=== PATIENT | male | born 1960 | race Caucasian/White ===

== ENCOUNTER 2018-04-17 17:12 | Emergency (ER) | payer BC, OTHER ==
[2018-04-17 17:32] VITALS: BP 171/79; PULSE 86; TEMP 98.6; BMI 34.9
--- NOTE | 2018-04-17 17:32 | PDOC ---
Rapid Medical Evaluation Chief Complaint: Pain Time Seen by Provider: 04/17/18 17:29 Medical Evaluation: 04/17/18 17:30 I have performed a brief in person evaluation of this patient. The patient presents with the CC of: abd pain HPI: Pt is a 57 Yo male who complains of right sided abd pain. Pt denies fever , denies hx of abd surgeries. PE: Skin: Clear Lungs: Clear Heart: RRR Abd: non tender MS: Moves all extremities without difficulty Neuro: Alert and oriented Psych: Appropriate affect I have ordered the following: abd protocol Pt will proceed to the main ED for further evaluation. Discharge Disposition - Diagnosis Abdominal pain Qualifiers: Abdominal location: right lower quadrant Qualified Code(s): R10.31 - Right lower quadrant pain - Referrals - Patient Instructions - Post Discharge Activity
[2018-04-17 18:32] LABS: ALBUMIN 4.5 g/dl (3.4-5.0); ALK PHOS 125 U/L (45-117); ANION GAP 9 MMOL/L (8-16); BILIRUBIN,TOTAL 0.7 mg/dL (0.2-1); BLOOD UREA NITROGEN 21 mg/dL (7-18); CALCIUM 9.1 mg/dL (8.5-10.1); CHLORIDE 96 mmol/L (98-107); CO2 29 mmol/L (21-32); CREATININE 1.4 mg/dL (0.55-1.3); GLUCOSE,RANDOM 242 mg/dL (74-106); LIPASE 121 U/L (73-393); POTASSIUM 4.1 mmol/L (3.5-5.1); SGOT/AST 23 U/L (15-37); SGPT/ALT 39 U/L (13-61); SODIUM 134 mmol/L (136-145); TOT PROT 7.7 g/dl (6.4-8.2)
[2018-04-17 18:42] LABS: BASO % 0.3 % (0-2.0); EOS % 0.7 % (0-4.5); HEMATOCRIT 44.4 % (35.4-49); HEMOGLOBIN 15.7 GM/dL (11.7-16.9); LYMPH % 8.9 % (8-40); MCHC 35.4 g/dl (32.0-35.9); MEAN CELL VOLUME 84.8 fl (80-96); MEAN PLT VOLUME 8.9 fl (7.5-11.1); MONO % 7.5 % (3.8-10.2); NEUT % 82.6 % (42.8-82.8); PLATELET COUNT 184 K/MM3 (134-434); RBC 5.24 M/mm3 (4.00-5.60); RDW 13.9 % (11.9-15.9); WHITE BLOOD COUNT 12.1 K/mm3 (4.0-10.0)
[2018-04-17 19:35] LABS: URINE APPEARANCE CLEAR; URINE BILIRUBIN NEGATIVE (<2.0 mg/dL); URINE COLOR LTYELLOW; URINE GLUCOSE (UA) 2+ (NEGATIVE); URINE KETONE NEGATIVE (NEGATIVE); URINE LEUK ESTERASE 1+ (NEGATIVE); URINE NITRITE NEGATIVE (NEGATIVE); URINE PROTEIN NEGATIVE (NEGATIVE); URINE UROBILINOGEN NEGATIVE mg/dL (0.2-1.0)
--- NOTE | 2018-04-17 19:36 | PDOC ---
History of Present Illness - General Chief Complaint: Pain Stated Complaint: RT ABDOMINAL PAIN Time Seen by Provider: 04/17/18 17:29 - History of Present Illness Initial Comments: Moe Argueta is a 57yo man with a PMH of DM, HTN, tachycardia, multiple kidney stones who presents with waxing/waning RLQ abdominal pain. He reports that he felt well when he got up this morning, but he started noticing RLQ pain about an hour later. He initially thought it was a gas pain and took some GasX without improvement. The pain worsened throughout the day, and he went to see his PMD in the afternoon. At worst, the pain was 8/10 and is currently 2/10. It is non-radiating. He has no associated nausea, vomiting, diarrhea, constipation , urinary symptoms, or fever though he does note that he has been urinating less frequently than normal today. He also notes that his diabetes has not been well controlled recently, and his sugars have been very high. Past History - Past Medical History Allergies/Adverse Reactions: Allergies Allergy/AdvReac Type Severity Reaction Status Date / Time No Known Allergies Allergy Verified 04/17/18 17:32 Home Medications: Ambulatory Orders Cephalexin Monohydrate [Keflex -] 500 mg PO BID #20 capsule 04/17/18 Tamsulosin HCl [Flomax] 0.4 mg PO DAILY #14 capsule 04/17/18 COPD: No Diabetes: Yes HTN: Yes - Surgical History Lung Surgery: No - Immunization History Immunization Up to Date: No - Suicide/Smoking/Psychosocial Hx Smoking History: Never smoked Have you smoked in the past 12 months: No Information on smoking cessation initiated: No Hx Alcohol Use: No Drug/Substance Use Hx: No Review of Systems - Review of Systems Comments:: General: No fevers, no chills, no weight or appetite change, no malaise HEENT: No changes in vision, no changes in hearing, no congestion, no sore throat CV: No chest pain, no palpitations, no LE edema. h/o tachycardia Pulm: No SOB, no cough, no wheezing GI: No nausea or vomiting, no change in bowel habits, no melena. +RLQ pain : No frequency, no urgency, no dysuria. h/o stones Musc: No back pain, no joint swelling, no recent injury Skin: No rash, no lesions, no erythema Endo: No excessive thirst, no heat/cold intolerance Heme: No unusual bruising or bleeding, no swollen glands Neuro: No syncope, no numbness/tingling, no focal weakness Vasc: No claudication Psych: No recent change in mood, no SI or HI *Physical Exam - Vital Signs Last Vital Signs Temp Pulse Resp BP Pulse Ox 98.6 F 86 18 171/79 H 99 04/17/18 17:30 04/17/18 17:30 04/17/18 17:30 04/17/18 17:30 04/17/18 17:30 - Physical Exam Comments: General: Comfortable, no acute distress HEENT: PERRL, EOMI, MMM, voice normal, normal neck ROM, no LAD Cards: RRR, no murmur appreciated Pulm: Comfortable on room air, clear to auscultation bilaterally Abd: Soft, nondistended. Mild RLQ tenderness with deep palpation : No CVA tenderness Ext: Atraumatic. No LE edema. ROM intact. Strength 5/5 and equal bilaterally Vasc: Extremities WWP. Skin: Normal color, no rashes or lesions Neuro: A&Ox3, CN grossly intact, normal speech, motor/sensory grossly intact and symmetric Psych: Mood appropriate to situation Moderate Sedation - Procedure Monitoring Vital Signs: Procedure Monitoring Vital Signs Temperature 98.6 F 04/17/18 17:30 Pulse Rate 86 04/17/18 17:30 Respiratory Rate 18 04/17/18 17:30 Blood Pressure 171/79 H 04/17/18 17:30 O2 Sat by Pulse Oximetry (%) 99 04/17/18 17:30 ED Treatment Course - LABORATORY CBC & Chemistry Diagram: 04/17/18 17:40 04/17/18 17:40 - ADDITIONAL ORDERS Additional order review: Laboratory Results 04/17/18 17:40 Sodium 134 L Potassium 4.1 Chloride 96 L Carbon Dioxide 29 Anion Gap 9 BUN 21 H Creatinine 1.4 H Creat Clearance w eGFR 52.62 Random Glucose 242 H Calcium 9.1 Total Bilirubin 0.7 AST 23 ALT 39 Alkaline Phosphatase 125 H Total Protein 7.7 Albumin 4.5 Lipase 121 04/17/18 17:40 RBC 5.24 MCV 84.8 MCHC 35.4 RDW 13.9 MPV 8.9 Neutrophils % 82.6 Lymphocytes % 8.9 Monocytes % 7.5 Eosinophils % 0.7 Basophils % 0.3 Medical Decision Making - Medical Decision Making 04/17/18 19:28 Moe Argueta is a 57yo man with a PMH of DM, HTN, tachycardia, multiple kidney stones who presents with waxing/waning RLQ abdominal pain that started 1hr after waking this morning. He reports that the pain feels similar to his kidney stones but is in a different location than normal. - Ddx includes kidney stone, UTI, less likely appendicitis given lack of fever and improvement in pain. No diarrhea or constipation suggesting colitis, enteritis, obstruction. - CBC, CMP, lipase, UA ordered in RME - Labs reviewed. Notable for WBC 12, Cr 1.4, BUN 21, glucose 242. No previous labs for comparison, pt not aware of elevated BUN, Cr, but he does report recent hyperglycemia - UA sent, pending 04/17/18 19:46 - UA with 3+ blood, 11 WBC, 63 RBC, +1 leuk esterase - Suggests UTI, though could also indicate a stone. 04/17/18 21:09 - Following discussion with Dr Jones, CT abd/pelvis without contrast ordered to evaluate for hydronephrosis and location of stone - Patient walked to CT 04/17/18 22:24 - CT read back. Shows 6mm stone at R UVJ, likely obstructing, R hydronephrosis with perinephric fat stranding - Call to urology placed - Ceftriaxone IV ordered while in ED, IV tylenol for pain after moving for CT - Spoke to patient regarding admission. He states that he may be unable to stay overnight due to no childcare. He will try to arrange childcare for his daughter but may have to AMA. He understands that he will need to sign AMA paperwork in this case. 04/17/18 22:44 - Spoke to Dr Wilfredo Spring. Will see patient for follow up. Agrees with plan to continue abx, flomax. Should get urine strainer and bring stone to follow up if possible - Mr Argueta reports that he will have to leave AMA as he cannot get anyone to care for his daughter. Discussed home care, follow up, and return precautions. Mr Anne states that he will call for follow up first thing in the morning. Discussed with Dr Jones. Donita Alvarado PGY1 *DC/Admit/Observation/Transfer Diagnosis at time of Disposition: Kidney stone on right side, Hydroureteronephrosis - Discharge Dispostion Disposition: AGAINST MEDICAL ADVICE Condition at time of disposition: Stable - Prescriptions Prescriptions: Cephalexin Monohydrate [Keflex -] 500 mg PO BID #20 capsule Tamsulosin HCl [Flomax] 0.4 mg PO DAILY #14 capsule - Referrals Referrals: Kwame Spring MD [Staff Physician] - - Patient Instructions Printed Discharge Instructions: DI for Kidney Stones Additional Instructions: Discharge Instructions: You were seen in the emergency department with abdominal pain. You were found to have a kidney stone that is partially blocking your ureter and causing some hydronephrosis (backup into the kidney with inflammation and swelling). You may also have a urinary tract infection. You were given an antibiotic for suspected infection while in the ER. Home Care: - You have been prescribed an antibiotic for urinary tract infection. This should be taken twice daily until the entire prescription is completed - You have also been prescribed tamsulosin (Flomax) to help flush out the kidney stone - Take acetaminophen (Tylenol) as 650-1000mg every 6-8 hours as needed for pain - Use the urine strainer you have been provided to try to catch your kidney stone at home. If you pass the stone, bring it to your urology appointment. Follow Up: - You have been referred to a urologist, Dr Spring. Please call to make an appointment for follow up within the next 2-3 days. - Seek immediate medical care if your symptoms worsen, you develop fevers to 101F, or you stop urinating completely. - Post Discharge Activity
[2018-04-17 19:40] LABS: EPI CELLS RARE /HPF (FEW); URINE MUCUS RARE
--- NOTE | 2018-04-17 20:17 | PDOC ---
Attending Attestation - HPI HPI: 04/17/18 21:10 The patient is a 57 year old male with a PMH of diabetes presenting to the ER with urinary hesitancy and right flank pain. Patient states he had kidney stones in the past. Patient has not followed up with urology. Patient denies any associated testicular pain. The patient denies chest pain, shortness of breath, headache and dizziness. Denies fever, chills, nausea, vomit, diarrhea and constipation. Denies dysuria, frequency, urgency and hematuria. Allergies: NKA Past surgical history: None reported. Social history: No reported alcohol, drug or cigarette use. - Physicial Exam PE: 04/17/18 21:12 ADULT PHYSICAL EXAM Constitutional: Awake, alert, oriented. No acute distress. Neck: Supple. Full ROM. No lymphadenopathy. Cardiovascular: Regular rate. Regular rhythm. S1, S2 regular. Distal pulses are 2+ and symmetric. Pulmonary/Chest: No evidence of respiratory distress. Clear to auscultation bilaterally No wheezing, rales or rhonchi. Abdominal: Soft and non-distended. There is no tenderness. No rebound, guarding or rigidity. No organomegaly. No palpable masses. Good bowel sounds. Back: (+) Right flank tenderness. Musculoskeletal: No edema. No cyanosis. No clubbing. Full range of motion in all extremities. Nocalf tenderness. Radial/pedal pulses are intact and 2+ bilaterally Skin: Skin is warm and dry. No petechiae. No purpura. Neurological: Alert and oriented to person, place, and time. Cranial nerves II- XII are grossly intact. Normal speech. Strength is grossly symmetric. No sensory deficits. Psychiatric: Good eye contact. Normal interaction, affect and behavior. <Morena Martinez - Last Filed: 04/17/18 21:10> - Resident Resident Name: Donita Alvarado - ED Attending Attestation I have performed the following: I have examined & evaluated the patient, The case was reviewed & discussed with the resident, I agree w/resident's findings & plan, Exceptions are as noted - Medical Decision Making 04/17/18 20:17 I, Dr. Zoe Jones, DO, attest that this document has been prepared under my direction and personally reviewed by me in its entirety. I further attest, that it accurately reflects all work, treatment, procedures and medical decision -making performed by me. 04/17/18 21:03 a/p: 57yo diabetic with urinary hesitancy and R flank pain -hx of renal stones in the past, has never seen urology -pt states urinary hesitancy today and R flank pain -no testicular pain -labs sent from [facility] show mildly elevated cr and blood in urine -will send for CT to eval for obstructing stone -pt ambulates with a steady gait and is in NAD 04/17/18 22:42 pt with 6mm obstructing stone concern for dmitri uti and diabetic case discussed with Dr. Spring- recommends abx and flomax pt states he does not want to stay states he wants to sign out AMA because he has a sick daughter at home he needs to help care for. resident discussed risks of staying vs ama Note: The patient insists on leaving the emergency dept and is signing out against medical advice. The patient understands the risks and complications that may result from the refusal of medical care and admission which includes and permanent disability. The patient has the mental capacity of understanding the risks of refusing care and is capable of making an informed decision. The patient was instructed to return to the emergency department should he change his mind regarding medical care or should his condition worsen. The patient signed the Against Medical Advice form. <Zoe Jones - Last Filed: 04/17/18 22:45>
[2018-04-17] MEDS ORDERED: SODIUM CHLORIDE 0.9% 500 ML INFUS.BAG IV ONE (20:23)
[2018-04-17] MEDS ORDERED: ACETAMINOPHEN 1000 MG/100 ML VIAL (NON FORMULARY) IVPB ONE (21:04)
[2018-04-17] MEDS ORDERED: ACETAMINOPHEN INJECTION 100 ML IVPB ONE (21:47)
[2018-04-17] MEDS ORDERED: CEFTRIAXONE 1 GM in DEXTROSE 5%-WATER - 100 ML IVPB ONE (22:16)
[2018-04-17] MEDS ORDERED: TAMSULOSIN HCL 0.4 MG CAP PO ONE (22:22)
[2018-04-17] MEDS ORDERED: TAMSULOSIN HCL 0.4 MG CAP ONE (22:51)
[2018-04-17] MEDS ORDERED: CEFTRIAXONE 1 GM/50 ML BAG ONE (22:51)
== END 2018-04-17 23:43 | disposition left against medical advice (07) ==
LOC: JER 17:12
PROC: 3E03329 Introduction of Other Anti-infective into Peripheral Vein, Percutaneous Approach (ICD-10-PCS; principal; 2018-04-17)
PROC: 3E033NZ Introduction of Analgesics, Hypnotics, Sedatives into Peripheral Vein, Percutaneous Approach (ICD-10-PCS; 2018-04-17)
PROC: 3E0337Z Introduction of Electrolytic and Water Balance Substance into Peripheral Vein, Percutaneous Approach (ICD-10-PCS; 2018-04-17)
DX: N13.2 Hydronephrosis with renal and ureteral calculous obstruction (principal); I10 Essential (primary) hypertension; E11.9 Type 2 diabetes mellitus without complications
CPT/HCPCS: 36415; 74176-TC; 80053; 81003; 81015; 83690; 85025; 87086; 87186; 99283-25; J0131

== ENCOUNTER 2018-06-01 11:58 | Inpatient (IN) | payer BC, OTHER ==
[2018-06-01] MEDS ORDERED: SODIUM CHLORIDE 1,000 ML IV STA (12:09)
[2018-06-01] MEDS ORDERED: KETOROLAC TROMETHAMINE 30 MG/1 ML VIAL IVPUSH ONE (12:09)
--- NOTE | 2018-06-01 12:12 | PDOC ---
History of Present Illness - General Chief Complaint: Pain, Acute Stated Complaint: ABD PAIN Time Seen by Provider: 06/01/18 12:08 History Source: Patient - History of Present Illness Timing/Duration: reports: constant Quality: reports: severe Abdominal Pain Onset Location: reports: flank Past History - Past Medical History Allergies/Adverse Reactions: Allergies Allergy/AdvReac Type Severity Reaction Status Date / Time No Known Allergies Allergy Verified 06/01/18 12:04 Home Medications: Ambulatory Orders Carvedilol 0 mg PO DAILY 06/01/18 Losartan Potassium 0 mg PO DAILY 06/01/18 Metformin HCl [Glucophage] 500 mg PO BID 06/01/18 Simvastatin 0 mg PO DAILY 06/01/18 COPD: No Diabetes: Yes HTN: Yes - Surgical History Lung Surgery: No - Immunization History Immunization Up to Date: No - Suicide/Smoking/Psychosocial Hx Smoking History: Never smoked Have you smoked in the past 12 months: No Hx Alcohol Use: No Drug/Substance Use Hx: No Review of Systems - Review of Systems Constitutional: No: Chills, Fever ABD/GI: No: Blood Streaked Bowels, Diarrhea, Nausea, Rectal Bleeding, Vomiting, Abdominal cramping : Yes: Flank Pain. No: Burning, Dysuria, Discharge, Frequency, Hematuria *Physical Exam - Vital Signs Last Vital Signs Temp Pulse Resp BP Pulse Ox 98.4 F 114 H 20 178/104 H 99 06/01/18 12:04 06/01/18 12:04 06/01/18 12:04 06/01/18 12:04 06/01/18 12:04 - Physical Exam General Appearance: Yes: Appropriately Dressed, Mild Distress HEENT: positive: Normal Voice Neck: positive: Supple Respiratory/Chest: positive: Lungs Clear, Normal Breath Sounds. negative: Respiratory Distress Cardiovascular: positive: Regular Rate, S1, S2 Gastrointestinal/Abdominal: positive: Normal Bowel Sounds, Soft. negative: Tender, Pulsatile Mass Musculoskeletal: negative: CVA Tenderness Integumentary: positive: Dry, Warm Neurologic: positive: Fully Oriented, Alert, Normal Mood/Affect Moderate Sedation - Procedure Monitoring Vital Signs: Procedure Monitoring Vital Signs Temperature 98.4 F 06/01/18 12:04 Pulse Rate 114 H 06/01/18 12:04 Respiratory Rate 20 06/01/18 12:04 Blood Pressure 178/104 H 06/01/18 12:04 O2 Sat by Pulse Oximetry (%) 99 06/01/18 12:04 ED Treatment Course - LABORATORY CBC & Chemistry Diagram: 06/01/18 12:24 06/01/18 12:24 - RADIOLOGY Radiology Studies Ordered: Category Date Time Status ABDOMEN & PELVIS CT W/O CONTR [CT] Stat CT Scan 06/01/18 12:09 Ordered Medical Decision Making - Medical Decision Making 06/01/18 12:11 58 yo M, HTN, NIDDM, renal stones, s/p lithotripsy > 10 years ago, here w/ severe L flank pain since last night, similar to his renal colic. No n/v/f/c, dysuria or hematuria. Of note, was seen in ED 04/06 for R flank pain. In addition to R UVJ stone, CT done at the time revealed stones in the lower poles of b/l kidneys See exam L flank pain M/l stone as have h/o same, elevated HR and BP noted at triage though very little clinical concern for dissection at time, m/l due to degree of pain -pain control -IVF -labs -CT 06/01/18 14:41 CT w/ 4mm stone to mid L ureter w/ mild hydro and perinephric/ureteral stranding. Wbc 13 w/ cr of 2.2 (Cr 1.4, 04/06). No h/o renal disease. UA w 1+ LE and >60 WBC, ucx sent. Of note, patient had + urine culture 03/2018, which grew back enterococcus and staph and was treated. Reports no dysuria at this time. Possible infected stone. Will give dose of levaquin (sen on prior ucx) and arrange admission. Pt continues to c/o significant L flank pain though has improved. Rpt vital mildly improved. Will continue to manage in ED. 06/01/18 16:11 Pt admitted to hospitalist *DC/Admit/Observation/Transfer Diagnosis at time of Disposition: Renal colic on left side, HEATHER (acute kidney injury), Hyperglycemia - Discharge Dispostion Condition at time of disposition: Fair Decision to Admit order: Yes - Referrals - Patient Instructions - Post Discharge Activity
[2018-06-01] MEDS ORDERED: KETOROLAC TROMETHAMINE 30 MG/1 ML VIAL ONE (12:20)
[2018-06-01] MEDS ORDERED: TAMSULOSIN HCL 0.4 MG CAP PO ONE (12:24)
[2018-06-01 12:38] LABS: BASO % 0.4 % (0-2.0); EOS % 0.4 % (0-4.5); HEMATOCRIT 39.1 % (35.4-49); HEMOGLOBIN 14.3 GM/dL (11.7-16.9); LYMPH % 6.8 % (8-40); MCH 30.1 pg (25.7-33.7); MCHC 36.5 g/dl (32.0-35.9); MEAN CELL VOLUME 82.5 fl (80-96); MEAN PLT VOLUME 8.1 fl (7.5-11.1); MONO % 8.3 % (3.8-10.2); NEUT % 84.1 % (42.8-82.8); PLATELET COUNT 309 K/MM3 (134-434); RBC 4.74 M/mm3 (4.00-5.60); RDW 13.1 % (11.9-15.9); WHITE BLOOD COUNT 13.8 K/mm3 (4.0-10.0)
[2018-06-01] MEDS ORDERED: TAMSULOSIN HCL 0.4 MG CAP ONE (12:44)
[2018-06-01 13:05] LABS: ALBUMIN 3.8 g/dl (3.4-5.0); ALK PHOS 134 U/L (45-117); ANION GAP 7 MMOL/L (8-16); BILIRUBIN,TOTAL 0.7 mg/dL (0.2-1); BLOOD UREA NITROGEN 23 mg/dL (7-18); CALCIUM 9.2 mg/dL (8.5-10.1); CHLORIDE 96 mmol/L (98-107); CO2 31 mmol/L (21-32); CREATININE 2.2 mg/dL (0.55-1.3); POTASSIUM 4.1 mmol/L (3.5-5.1); SGOT/AST 19 U/L (15-37); SGPT/ALT 25 U/L (13-61); SODIUM 134 mmol/L (136-145); TOT PROT 7.3 g/dl (6.4-8.2)
[2018-06-01 13:19] LABS: GLUCOSE,RANDOM 309 mg/dL (74-106)
[2018-06-01] MEDS ORDERED: morphine SULFATE 4 MG/ML VIAL ONE ×2 (14:11→15:15)
[2018-06-01 14:39] LABS: URINE APPEARANCE CLEAR; URINE BILIRUBIN NEGATIVE (<2.0 mg/dL); URINE COLOR STRAW; URINE GLUCOSE (UA) 3+ (NEGATIVE); URINE KETONE NEGATIVE (NEGATIVE); URINE LEUK ESTERASE 1+ (NEGATIVE); URINE NITRITE NEGATIVE (NEGATIVE); URINE PROTEIN NEGATIVE (NEGATIVE); URINE UROBILINOGEN NEGATIVE mg/dL (0.2-1.0)
[2018-06-01] MEDS ORDERED: morphine CARPU-JECT 4 MG/1 ML DISP.SYRIN IVPUSH ONE ×2 (14:43→15:02)
[2018-06-01 14:52] LABS: EPI CELLS RARE /HPF (FEW)
[2018-06-01] MEDS ORDERED: ONDANSETRON 4 MG/2 ML VIAL IVPUSH ONE ×2 (15:15→21:03)
[2018-06-01] MEDS ORDERED: ONDANSETRON 4 MG/2 ML VIAL ONE (15:17)
[2018-06-01] MEDS ORDERED: SODIUM CHLORIDE 1,000 ML IV SCH ×2 (16:45→17:31)
--- NOTE | 2018-06-01 17:00 | HP ---
CHIEF COMPLAINT: L flank pain PCP: Dr. Perkins HISTORY OF PRESENT ILLNESS: 58 y/o M with PMH HTN, HLD, NIDDM, past episodes of nephrolithiasis, who presents to the ED c/o L flank pain x1 day. As per pt, his pain started last night in his L flank. It was 10/10, constant, and a/w radiation to his back and LUQ, LLQ of his abdomen. His pain was so severe that he was unable to sleep last night, so he decided to bring himself to the ED today to get it evaluated. During this time, without notable hematuria or dysuria. Denies fever, chills, SOB, chest pain or pressure, or changes in urinary or bowel function. Of note, patient has had multiple episodes of nephrolithasis prior. Over ten years ago, he underwent lithotripsy, which was complicated by the need for blood transfusion. In 03/2018, he also had a R obstructing stone which passed on its own, as well as two weeks prior. Does not routinely follow with a urologist. ER course was notable for: (1) toradol 20mg IVP x 1 (2) morphine 4mg IVP x2 (3) zofran (4) IV NS (5) flomax (6) levaquin Recent Travel: denies PAST MEDICAL HISTORY: as above PAST SURGICAL HISTORY: lithotripsy > 10 yrs ago Social History: retired. used to work in [employer] Smoking: denies Alcohol: denies Drugs: denies Family History: DM- grandma Allergies No Known Allergies Allergy (Verified 06/01/18 12:04) HOME MEDICATIONS: Home Medications Medication Instructions Recorded Aspirin 81 mg PO DAILY 06/01/18 Carvedilol 12.5 mg PO DAILY 06/01/18 Losartan/Hydrochlorothiazide 1 each DAILY 06/01/18 [Losartan-Hctz 100-12.5 mg Tab] Metformin HCl [Glucophage] 500 mg PO BID 06/01/18 meds have been verified by patient at bedside with card REVIEW OF SYSTEMS CONSTITUTIONAL: Absent: fever, chills, diaphoresis, generalized weakness, malaise, loss of appetite, weight change HEENT: Absent: rhinorrhea, nasal congestion, throat pain, throat swelling, difficulty swallowing, mouth swelling, ear pain, eye pain, visual changes CARDIOVASCULAR: Absent: chest pain, syncope, palpitations, irregular heart rate, lightheadedness , peripheral edema RESPIRATORY: Absent: cough, shortness of breath, dyspnea with exertion, orthopnea, wheezing, stridor, hemoptysis GASTROINTESTINAL: Absent: abdominal pain, abdominal distension, nausea, vomiting, diarrhea, constipation, melena, hematochezia GENITOURINARY: +L flank pain Absent: dysuria, frequency, urgency, hesitancy, hematuria, flank pain, genital pain MUSCULOSKELETAL: Absent: myalgia, arthralgia, joint swelling, back pain, neck pain SKIN: Absent: rash, itching, pallor HEMATOLOGIC/IMMUNOLOGIC: Absent: easy bleeding, easy bruising, lymphadenopathy, frequent infections ENDOCRINE: Absent: unexplained weight gain, unexplained weight loss, heat intolerance, cold intolerance NEUROLOGIC: Absent: headache, focal weakness or paresthesias, dizziness, unsteady gait, seizure, mental status changes, bladder or bowel incontinence PSYCHIATRIC: Absent: anxiety, depression, suicidal or homicidal ideation, hallucinations. PHYSICAL EXAMINATION Vital Signs - 24 hr 06/01/18 06/01/18 12:04 15:09 Temperature 98.4 F 98 F Pulse Rate 114 H Pulse Rate [ 105 H Apical] Respiratory 20 18 Rate Blood Pressure 178/104 H Blood Pressure 177/98 H [Left Arm] O2 Sat by Pulse 99 100 Oximetry (%) GENERAL: Pleasant. Awake, alert, and fully oriented, in no acute distress. HEAD: Normal with no signs of trauma. EYES: Pupils equal, round and reactive to light, extraocular movements intact, sclera anicteric, conjunctiva clear. No lid lag. EARS, NOSE, THROAT: Ears normal, nares patent, oropharynx clear without exudates. Moist mucous membranes. NECK: Normal range of motion, supple without lymphadenopathy LUNGS: Breath sounds equal, clear to auscultation bilaterally. No wheezes, and no crackles. No accessory muscle use. HEART: Regular rate and rhythm, normal S1 and S2 without murmur, rub or gallop. ABDOMEN: Soft, +L flank tenderness, point tenderness L suprapubic region, non distended, normoactive bowel sounds, no guarding, no rebound LOWER EXTREMITIES: 2+ pt pulses, warm, well-perfused. No calf tenderness. No peripheral edema. NEUROLOGICAL: Cranial nerves II-XII intact. 5/5 motor strength UE, LE. sensation intact PSYCHIATRIC: Cooperative. Good eye contact. SKIN: Warm, dry, normal turgor Laboratory Results - last 24 hr 06/01/18 06/01/18 06/01/18 12:24 12:24 14:09 WBC 13.8 H RBC 4.74 Hgb 14.3 Hct 39.1 MCV 82.5 MCH 30.1 MCHC 36.5 H RDW 13.1 Plt Count 309 D MPV 8.1 Absolute Neuts (auto) 11.6 H Neutrophils % 84.1 H Lymphocytes % 6.8 L D Monocytes % 8.3 Eosinophils % 0.4 Basophils % 0.4 Nucleated RBC % 0 Sodium 134 L Potassium 4.1 Chloride 96 L Carbon Dioxide 31 Anion Gap 7 L BUN 23 H Creatinine 2.2 H Creat Clearance w eGFR 31.12 Random Glucose 309 H* Calcium 9.2 Total Bilirubin 0.7 AST 19 ALT 25 Alkaline Phosphatase 134 H Total Protein 7.3 Albumin 3.8 Urine Color Straw Urine Appearance Clear Urine pH 8.0 Ur Specific [place] 1.013 Urine Protein Negative Urine Glucose (UA) 3+ H Urine Ketones Negative Urine Blood 1+ H Urine Nitrite Negative Urine Bilirubin Negative Urine Urobilinogen Negative Ur Leukocyte Esterase 1+ H Urine WBC (Auto) 69 Urine RBC (Auto) 14 Ur Epithelial Cells Rare Ucx- sent EKG- requested to ED. pending CTAP: 4mm calc in mid L ureter- partially obstructing calculus. mild hydro. perinephric stranding. non obstructing 2mm calculus lower pole L kidney, urinary tract calculi b/l, enlarged spleen 12.6cm ASSESSMENT/PLAN: 58 y/o M with PMH HTN, HLD, NIDDM, past episodes of nephrolithiasis, who presents to the ED c/o L flank pain x1 day. Found to have nephrolithiasis. #L flank pain 2/2 nephrolithiasis -4mm calculus in mid L ureter, partially obstructing with hydro, HEATHER -afebrile, tachy likely 2/2 pain. however with white count. could be infected -s/p levaquin x 1 in ED. follow qtc -will start on rocephin 1g IVPB qd now -IV NS 125 cc/hr -toradol PRN for pain -strain all urine, f/u ucx -uro consult: Dr. Murphy. d/w , will be seen, less likely need lithotripsy #HTN- uncontrolled -likely exacerbated by pain -will hold HCTZ-Losartan d/t HEATHER -will c/w coreg and reassess #HLD -continue to monitor -not on active medication as per pt's med list -f/u lipid profile #NIDDM -hold home metformin for now -on d/c, would like to switch agents as it is causing diarrhea -c/w ISS, BGM ACHS #F/E/N IV NS 125 cc/hr continue to follow lyes na controlled, diabetic diet #PPX DVT: Hep 5k SQ TID. #Dispo admit to med-surg Visit type - Emergency Visit Emergency Visit: Yes ED Registration Date: 06/01/18 Care time: The patient presented to the Emergency Department on the above date and was hospitalized for further evaluation of their emergent condition. - New Patient This patient is new to me today: Yes Date on this admission: 06/01/18 - Critical Care Critical Care patient: No
[2018-06-01 17:43] LABS: CHOLESTEROL 196 mg/dL (50-200); HDL CHOLESTEROL 26 mg/dL (40-60); TRIGLYCERIDES 237 mg/dL (0-150)
[2018-06-01] MEDS ORDERED: CEFTRIAXONE 1 GM/50 ML BAG ONE (17:47)
[2018-06-01] MEDS: CEFTRIAXONE 1 GM in DEXTROSE 5%-WATER - 50 ML IVPB SCH (17:52)
[2018-06-01 18:24] LABS: INR 1.13 (0.83-1.09); PROTHROMBIN TIME (PATIENT) 13.3 SEC (9.7-13.0)
[2018-06-01 18:26] LABS: ACTIVATED PTT 32.2 SECONDS (25.2-36.5)
[2018-06-01 18:51] VITALS: BMI 34.0
--- NOTE | 2018-06-01 19:43 | PN ---
Teaching Attending Note Name of Resident: Arabella Maxwell ATTENDING PHYSICIAN STATEMENT I saw and evaluated the patient. I reviewed the resident's note and discussed the case with the resident. I agree with the resident's findings and plan as documented. SUBJECTIVE: Complains of L flank pain. no fever/chills/hematuria. No nausea/ vomiting. Some dysuria. OBJECTIVE: Afebrile, Hemodynamically Stable Last Vital Signs Temp Pulse Resp BP Pulse Ox 98 F 94 H 16 142/79 97 06/01/18 15:09 06/01/18 16:52 06/01/18 16:52 06/01/18 16:52 06/01/18 16:52 HEENT - Atraumatic, Normocephalic Heart - S1, S2, RRR Lungs - clear to auscultation Abdomen - L flank tenderness, no CVA tenderness. Soft. Bowel Sounds normal. Extremities- no edema, no calf tenderness. Neuro - AAO x 3. Tone/Power normal all 4 extremities. Laboratory Results - last 24 hr 06/01/18 06/01/18 06/01/18 12:24 12:24 14:09 WBC 13.8 H RBC 4.74 Hgb 14.3 Hct 39.1 MCV 82.5 MCH 30.1 MCHC 36.5 H RDW 13.1 Plt Count 309 D MPV 8.1 Absolute Neuts (auto) 11.6 H Neutrophils % 84.1 H Lymphocytes % 6.8 L D Monocytes % 8.3 Eosinophils % 0.4 Basophils % 0.4 Nucleated RBC % 0 PT with INR INR PTT (Actin FS) Sodium 134 L Potassium 4.1 Chloride 96 L Carbon Dioxide 31 Anion Gap 7 L BUN 23 H Creatinine 2.2 H Creat Clearance w eGFR 31.12 Random Glucose 309 H* Lactic Acid Calcium 9.2 Total Bilirubin 0.7 AST 19 ALT 25 Alkaline Phosphatase 134 H Total Protein 7.3 Albumin 3.8 Triglycerides 237 H Cholesterol 196 Total LDL Cholesterol 135 H HDL Cholesterol 26 L Urine Color Straw Urine Appearance Clear Urine pH 8.0 Ur Specific [place] 1.013 Urine Protein Negative Urine Glucose (UA) 3+ H Urine Ketones Negative Urine Blood 1+ H Urine Nitrite Negative Urine Bilirubin Negative Urine Urobilinogen Negative Ur Leukocyte Esterase 1+ H Urine WBC (Auto) 69 Urine RBC (Auto) 14 Ur Epithelial Cells Rare Blood Type Antibody Screen 06/01/18 06/01/1806/01/19 17:33 17:33 18:00 WBC RBC Hgb Hct MCV MCH MCHC RDW Plt Count MPV Absolute Neuts (auto) Neutrophils % Lymphocytes % Monocytes % Eosinophils % Basophils % Nucleated RBC % PT with INR 13.30 H INR 1.13 H PTT (Actin FS) 32.2 Sodium Potassium Chloride Carbon Dioxide Anion Gap BUN Creatinine Creat Clearance w eGFR Random Glucose Lactic Acid 0.9 Calcium Total Bilirubin AST ALT Alkaline Phosphatase Total Protein Albumin Triglycerides Cholesterol Total LDL Cholesterol HDL Cholesterol Urine Color Urine Appearance Urine pH Ur Specific [place] Urine Protein Urine Glucose (UA) Urine Ketones Urine Blood Urine Nitrite Urine Bilirubin Urine Urobilinogen Ur Leukocyte Esterase Urine WBC (Auto) Urine RBC (Auto) Ur Epithelial Cells Blood Type O POSITIVE Antibody Screen Negative Current Medications Generic Name Dose Route Start Last Admin Trade Name Freq PRN Reason Stop Dose Admin Carvedilol 12.5 mg 06/02/18 10:00 Coreg - PO DAILY [facility] Heparin Sodium (Porcine) 5,000 unit 06/01/18 22:00 Heparin - SQ TID [facility] Ceftriaxone Sodium 1 gm/ 50 mls @ 100 mls/hr 06/01/18 17:15 06/01/18 17:52 Dextrose IVPB 100 mls/hr DAILY [facility] Administration Sodium Chloride 1,000 mls @ 125 mls/hr 06/01/18 17:31 Normal Saline - IV ASDIR [facility] Insulin Aspart 1 vial 06/01/18 22:00 Novolog Vial Sliding Scale - SQ ACHS [facility] Protocol Ketorolac Tromethamine 10 mg 06/01/18 22:00 Toradol PO 06/06/18 21:59 Q8H PRN PAIN LEVEL 7 - 10 Tamsulosin HCl 0.4 mg 06/02/18 08:30 Flomax - PO DAILY@0830 [facility] Home Medications Medication Instructions Recorded Aspirin 81 mg PO DAILY 06/01/18 Carvedilol 12.5 mg PO DAILY 06/01/18 Losartan/Hydrochlorothiazide 1 each DAILY 06/01/18 [Losartan-Hctz 100-12.5 mg Tab] Metformin HCl [Glucophage] 500 mg PO BID 06/01/18 ASSESSMENT AND PLAN: 58 year old male with history of HLD, HTN, DM 2, CKD 3, R Nephrolithiasis s/p lithotripsy 10 years ago, currently presents with 1 day history of L sided flank pain radiating around to anterior abdomen, severity 10/10. 1. Sepsis and HEATHER (on CKD 3) secondary to Obstructive Uropathy due to L sided Nephrolithiasis with Hydronephrosis and resulting UTI CT A/P - 4mm calculus in mid L ureter, partially obstructing with hydronephrosis , perinephric stranding; 2mm non-obstructing calculus lower pole L kidney Tachycardia up to 114. leukocytosis 13.8 Afebrile, Hemodynamically stable. Received Levaquin in ED - will switrch to Ceftriaxone pending Urine Culture Toradol, Morphine prn for pain Creat 2.2 (baseline 1.4) Started on Flomax pending Urology evaluation. IV hydration NPO after midnight in the event of any urological procedures tomorrow. 2. HTN - Continue Coreg. Losartan/HCTZ held due to HEATHER 3. DM 2 - Metformin held. Will maintain on Insulin as per sliding scale. DVT Px - Heparin SQ
[2018-06-01] MEDS: MORPHINE SULFATE 2 MG/ML VIAL IVPUSH PRN (20:54)
[2018-06-01] MEDS ORDERED: HEPARIN NA (PORCINE) 5,000 UNITS/ML 1ML VIAL SQ SCH (22:00)
[2018-06-01] MEDS ORDERED: KETOROLAC TROMETHAMINE 10 MG TABLET PO PRN (22:00)
[2018-06-01] MEDS: INSULIN SLIDING SCALE (NOVOLOG) 1 VIAL SQ SCH (23:27)
[2018-06-01] MEDS: HEPARIN NA (PORCINE) 5,000 UNITS/ML 1ML VIAL SQ SCH (23:29)
[2018-06-02] MEDS: MORPHINE SULFATE 2 MG/ML VIAL IVPUSH PRN ×3 (02:39→16:57)
[2018-06-02] MEDS ORDERED: ONDANSETRON 4 MG/2 ML VIAL IVPUSH ONE (05:54)
[2018-06-02] MEDS ORDERED: MORPHINE SULFATE 2 MG/ML VIAL IVPUSH ONE (05:54)
[2018-06-02] MEDS: HEPARIN NA (PORCINE) 5,000 UNITS/ML 1ML VIAL SQ SCH ×3 (05:58→22:18)
[2018-06-02] MEDS: INSULIN SLIDING SCALE (NOVOLOG) 1 VIAL SQ SCH ×4 (06:39→22:16)
[2018-06-02 07:42] LABS: ANION GAP 6 MMOL/L (8-16); BLOOD UREA NITROGEN 19 mg/dL (7-18); CALCIUM 8.1 mg/dL (8.5-10.1); CHLORIDE 101 mmol/L (98-107); CO2 29 mmol/L (21-32); CREATININE 2.2 mg/dL (0.55-1.3); GLUCOSE,RANDOM 168 mg/dL (74-106); MAGNESIUM 1.5 mg/dL (1.8-2.4); PHOSPHOROUS 2.7 mg/dL (2.5-4.9); POTASSIUM 4.2 mmol/L (3.5-5.1); SODIUM 135 mmol/L (136-145)
[2018-06-02] MEDS ORDERED: MAGNESIUM SULF 50% (8.12 MEQ/2 ML-1 GM VIAL) IVPB ONE (08:09)
[2018-06-02 08:11] LABS: BASO % 0.1 % (0-2.0); EOS % 0.2 % (0-4.5); HEMATOCRIT 34.3 % (35.4-49); HEMOGLOBIN 12.4 GM/dL (11.7-16.9); LYMPH % 8.7 % (8-40); MCH 30.2 pg (25.7-33.7); MCHC 36.2 g/dl (32.0-35.9); MEAN CELL VOLUME 83.4 fl (80-96); MEAN PLT VOLUME 8.4 fl (7.5-11.1); MONO % 9.2 % (3.8-10.2); NEUT % 81.8 % (42.8-82.8); PLATELET COUNT 229 K/MM3 (134-434); RBC 4.11 M/mm3 (4.00-5.60); RDW 13.5 % (11.9-15.9)
[2018-06-02] MEDS ORDERED: PNEUMOC 13-VAL CONJ-DIP CRM/PF 0.5 ML DISP.SYRIN IM ONE (09:00)
[2018-06-02] MEDS ORDERED: cefTRIAXone SODIUM 1 GM VIAL ONE (09:55)
[2018-06-02] MEDS ORDERED: DEXTROSE 5%-WATER - 50 ML IVPB ONE (09:55)
[2018-06-02] MEDS ORDERED: PNEUMOCOCCAL 23 VACCINE 0.5 ML VIAL IM ONE (10:00)
[2018-06-02] MEDS: CEFTRIAXONE 1 GM in DEXTROSE 5%-WATER - 50 ML IVPB SCH (10:03)
[2018-06-02] MEDS: CARVEDILOL 12.5 MG TABLET (FP) PO SCH (10:03)
[2018-06-02] MEDS: TAMSULOSIN HCL 0.4 MG CAP PO SCH (10:03)
--- NOTE | 2018-06-02 11:10 | EKG ---
Test Reason : Blood Pressure : / mmHG Vent. Rate : 093 BPM Atrial Rate : 093 BPM P-R Int : 120 ms QRS Dur : 094 ms QT Int : 350 ms P-R-T Axes : 037 078 014 degrees QTc Int : 435 ms NORMAL SINUS RHYTHM NORMAL ECG WHEN COMPARED WITH ECG OF 26-JUL-2017 09:11, NO SIGNIFICANT CHANGE WAS FOUND Confirmed by MD BEV, SWETHA ([id number]) on 06/02/2018 11:10:21 AM Referred By: Confirmed By:SWETHA PABLO MD
--- NOTE | 2018-06-02 13:24 | CON.GU ---
Consult Consult Specialty:: Referred by:: medicine Reason for Consultation:: renal colic, ureteral stone - History of Present Illness Chief Complaint: renal colic History of Present Illness: 58 year old male with recurrent nephrolithiaisis. He denies seeing a Urologist before. He has been passing many stones over the last few months. The most recent of which is lodged in his urethra. CT scan revelas a 4mm mid ureteral stone. no sepsis. This morning he is feelnig much better. - History Source History Provided By: Patient Limitations to Obtaining History: No Limitations - Past Medical History Renal/: Yes: Renal Calculi - Alcohol/Substance Use Hx Alcohol Use: No - Smoking History Smoking history: Never smoked Have you smoked in the past 12 months: No Home Medications - Allergies Allergies/Adverse Reactions: Allergies Allergy/AdvReac Type Severity Reaction Status Date / Time No Known Allergies Allergy Verified 06/01/18 12:04 - Home Medications Home Medications: Ambulatory Orders Aspirin 81 mg PO DAILY 06/01/18 Carvedilol 12.5 mg PO DAILY 06/01/18 Losartan/Hydrochlorothiazide [Losartan-Hctz 100-12.5 mg Tab] 1 each DAILY Metformin HCl [Glucophage] 500 mg PO BID 06/01/18 Review of Systems - Review of Systems Constitutional: denies: Chills, Fever Genitourinary: reports: Flank Pain Physical Exam- Vital Signs: Vital Signs Temperature 98.9 F 06/02/18 06:00 Pulse Rate 102 H 06/02/18 06:00 Respiratory Rate 20 06/02/18 06:00 Blood Pressure 148/75 06/02/18 06:00 O2 Sat by Pulse Oximetry (%) 98 06/01/18 22:00 Constitutional: Yes: Well Nourished, No Distress, Calm Gastrointestinal: Yes: WNL, Normal Bowel Sounds, Soft Renal/: Yes: Other (calicification palpable in distal urethra). No: CVA Tenderness - Left, CVA Tenderness - Right Pelvis: No: Bladder Distended Labs: CBC, BMP 06/02/18 06:15 06/02/18 06:15 Imaging - Results Cat Scan: Report Reviewed Problem List - Problems (1) Calculus of ureter Assessment/Plan: meeical expulisive therapy. flomax, pain meds and hydration. Patient should be able to pass this stone. advance diet. can follow up as outpatient Code(s): N20.1 - CALCULUS OF URETER (2) Calculus, urethra Assessment/Plan: sterile lubricant injected into urethra,. if cannot pass can remove with cystoscopy in office. FU this week Dr. Murphy [phone] Code(s): N21.1 - CALCULUS IN URETHRA
--- NOTE | 2018-06-02 15:15 | PN ---
Progress Note (short form) - Note Progress Note: SUBJECTIVE: Still complains of L flank pain. No fever/chills/hematuria. No nausea/vomiting. Some dysuria and dificultyn urinating due to ?ureteral stone. OBJECTIVE: Afebrile, Hemodynamically Stable Last Vital Signs Temp Pulse Resp BP Pulse Ox 99.0 F 102 H 20 142/71 98 06/02/18 15:00 06/02/18 15:00 06/02/18 15:00 06/02/18 15:00 06/01/18 22:00 Heart - S1, S2, RRR Lungs - clear to auscultation Abdomen - L flank tenderness, no CVA tenderness. Soft. Bowel Sounds normal. Extremities- no edema, no calf tenderness. Neuro - AAO x 3. Tone/Power normal all 4 extremities. Laboratory Results - last 24 hr 06/01/18 06/01/18 06/01/18 12:24 17:33 17:33 WBC RBC Hgb Hct MCV MCH MCHC RDW Plt Count MPV Absolute Neuts (auto) Neutrophils % Lymphocytes % Monocytes % Eosinophils % Basophils % Nucleated RBC % PT with INR 13.30 H INR 1.13 H PTT (Actin FS) 32.2 Sodium 134 L Potassium 4.1 Chloride 96 L Carbon Dioxide 31 Anion Gap 7 L BUN 23 H Creatinine 2.2 H Creat Clearance w eGFR 31.12 POC Glucometer Random Glucose 309 H* Lactic Acid Calcium 9.2 Phosphorus Magnesium Total Bilirubin 0.7 AST 19 ALT 25 Alkaline Phosphatase 134 H Total Protein 7.3 Albumin 3.8 Triglycerides 237 H Cholesterol 196 Total LDL Cholesterol 135 H HDL Cholesterol 26 L Blood Type O POSITIVE Antibody Screen Negative 06/01/18 06/01/18 06/01/18 18:00 18:00 23:27 WBC RBC Hgb Hct MCV MCH MCHC RDW Plt Count MPV Absolute Neuts (auto) Neutrophils % Lymphocytes % Monocytes % Eosinophils % Basophils % Nucleated RBC % PT with INR INR PTT (Actin FS) Sodium Potassium Chloride Carbon Dioxide Anion Gap BUN Creatinine Creat Clearance w eGFR POC Glucometer 179 Random Glucose Lactic Acid 0.9 Calcium Phosphorus Magnesium Total Bilirubin AST ALT Alkaline Phosphatase Total Protein Albumin Triglycerides Cholesterol Total LDL Cholesterol HDL Cholesterol Blood Type O POSITIVE Antibody Screen 06/02/18 06/02/18 06/02/18 05:55 06:15 06:15 WBC 9.0 RBC 4.11 Hgb 12.4 Hct 34.3 L MCV 83.4 MCH 30.2 MCHC 36.2 H RDW 13.5 Plt Count 229 D MPV 8.4 Absolute Neuts (auto) 7.4 Neutrophils % 81.8 Lymphocytes % 8.7 D Monocytes % 9.2 Eosinophils % 0.2 Basophils % 0.1 Nucleated RBC % 0 PT with INR INR PTT (Actin FS) Sodium 135 L Potassium 4.2 Chloride 101 Carbon Dioxide 29 Anion Gap 6 L BUN 19 H Creatinine 2.2 H Creat Clearance w eGFR 31.12 POC Glucometer 168 Random Glucose 168 H Lactic Acid Calcium 8.1 L Phosphorus 2.7 Magnesium 1.5 L Total Bilirubin AST ALT Alkaline Phosphatase Total Protein Albumin Triglycerides Cholesterol Total LDL Cholesterol HDL Cholesterol Blood Type Antibody Screen 06/02/18 11:09 WBC RBC Hgb Hct MCV MCH MCHC RDW Plt Count MPV Absolute Neuts (auto) Neutrophils % Lymphocytes % Monocytes % Eosinophils % Basophils % Nucleated RBC % PT with INR INR PTT (Actin FS) Sodium Potassium Chloride Carbon Dioxide Anion Gap BUN Creatinine Creat Clearance w eGFR POC Glucometer 175 Random Glucose Lactic Acid Calcium Phosphorus Magnesium Total Bilirubin AST ALT Alkaline Phosphatase Total Protein Albumin Triglycerides Cholesterol Total LDL Cholesterol HDL Cholesterol Blood Type Antibody Screen Current Medications Generic Name Dose Route Start Last Admin Trade Name Freq PRN Reason Stop Dose Admin Carvedilol 12.5 mg 06/02/18 10:00 06/02/18 10:03 Coreg - PO 12.5 mg DAILY [facility] Administration Heparin Sodium (Porcine) 5,000 unit 06/01/18 22:00 06/02/18 05:58 Heparin - SQ 5,000 unit TID [facility] Administration Ceftriaxone Sodium 1 gm/ 50 mls @ 100 mls/hr 06/01/18 17:15 06/02/18 10:03 Dextrose IVPB 100 mls/hr DAILY [facility] Administration Sodium Chloride 1,000 mls @ 125 mls/hr 06/01/18 17:31 06/02/18 02:11 Normal Saline - IV 125 mls/hr ASDIR [facility] Administration Insulin Aspart 1 vial 06/01/18 22:00 06/02/18 11:12 Novolog Vial Sliding Scale - SQ 2 unit ACHS [facility] Administration Protocol Ketorolac Tromethamine 10 mg 06/01/18 22:00 Toradol PO 06/06/18 21:59 Q8H PRN PAIN LEVEL 7 - 10 Morphine Sulfate 2 mg 03/16/19 19:45 06/02/18 10:01 Morphine Sulfate IVPUSH 2 mg Q6H PRN Administration PAIN LEVEL 6-10 Tamsulosin HCl 0.4 mg 06/02/18 08:30 06/02/18 10:03 Flomax - PO 0.4 mg DAILY@0830 [facility] Administration ASSESSMENT AND PLAN: 58 year old male with history of HLD, HTN, DM 2, CKD 3, R Nephrolithiasis s/p lithotripsy 10 years ago, currently presents with 1 day history of L sided flank pain radiating around to anterior abdomen, severity 12/26. 1. Sepsis and HEATHER (on CKD 3) secondary to Obstructive Uropathy due to L sided Nephrolithiasis (ureteral, urethral) with Hydronephrosis and resulting UTI CT A/P - 4mm calculus in mid L ureter, partially obstructing with hydronephrosis , perinephric stranding; 2mm non-obstructing calculus lower pole L kidney Tachycardia up to 114. leukocytosis 13.8 on admission Afebrile, Hemodynamically stable. Received Levaquin in ED - currently on Ceftriaxone pending Urine Culture Toradol, Morphine prn for pain Creat 2.2 (baseline 1.4) Started on Flomax and IV hydration Urology following. Nephrology consulted for renal dysfunction. 2. HTN - Continue Coreg. Losartan/HCTZ held due to HEATHER 3. DM 2 - Metformin held. Will maintain on Insulin as per sliding scale. DVT Px - Heparin SQ Visit type - Emergency Visit Emergency Visit: Yes ED Registration Date: 06/01/18 Care time: The patient presented to the Emergency Department on the above date and was hospitalized for further evaluation of their emergent condition. - New Patient This patient is new to me today: No - Critical Care Critical Care patient: No - Discharge Referral Referred to [facility] No
[2018-06-02] MEDS: SODIUM CHLORIDE 1,000 ML IV SCH ×2 (16:47→22:17)
--- NOTE | 2018-06-02 19:44 | CON.NEP ---
Consult Consult Specialty:: nephrology Referred by:: cleveland gee Reason for Consultation:: dmitri , r/o obstruction - History of Present Illness Chief Complaint: abd and flank pain History of Present Illness: 58 yo M, admitted with severe l flank pain c/w renal colic he had had in the past in mar 2018 he had presented with left flank pain of similar nature prior imaging had shown stones in both kidneys he says he had treatment for kidney stones many years ago and he was advised to drink a lot of fluids but he can not be precise PMHx HTN, NIDDM, renal stones, s/p lithotripsy > 10 years ago, CT w/ 4mm stone to mid L ureter w/ mild hydro and perinephric/ureteral stranding. Wbc 13 w/ cr of 2.2 (Cr 1.4, 04/06). also has pyuria- urine c/s pending - Past Medical History Renal/: Yes: Renal Calculi - Alcohol/Substance Use Hx Alcohol Use: No - Smoking History Smoking history: Never smoked Have you smoked in the past 12 months: No Home Medications - Allergies Allergies/Adverse Reactions: Allergies Allergy/AdvReac Type Severity Reaction Status Date / Time No Known Allergies Allergy Verified 06/01/18 12:04 - Home Medications Home Medications: Ambulatory Orders Aspirin 81 mg PO DAILY 06/01/18 Carvedilol 12.5 mg PO DAILY 06/01/18 Losartan/Hydrochlorothiazide [Losartan-Hctz 100-12.5 mg Tab] 1 each DAILY Metformin HCl [Glucophage] 500 mg PO BID 06/01/18 Nephrology Consult - Height Height: 5 ft 8 in - Weight Weight: 224 lb - BMI Body Mass Index (BMI): 34.0 - Lab Results CBC,BMP: CBC, BMP 06/02/18 06:15 06/02/18 06:15 Anion Gap: Anion Gap Anion Gap 6 MMOL/L (8-16) L 06/02/18 06:15 - Physical Examination Vital Signs: Vital Signs Temperature 98.6 F 06/02/18 18:00 Pulse Rate 85 06/02/18 18:00 Respiratory Rate 20 06/02/18 18:00 Blood Pressure 159/81 06/02/18 18:00 O2 Sat by Pulse Oximetry (%) 98 06/02/18 09:00 Constitutional: Yes: Well Nourished, No Distress, Calm Eyes: Yes: WNL, Conjunctiva Clear, EOM Intact HENT: Yes: WNL, Atraumatic, Normocephalic Neck: Yes: WNL, Supple, Trachea Midline Cardiovascular: Yes: WNL, Regular Rate and Rhythm Respiratory: Yes: WNL, Regular, CTA Bilaterally Gastrointestinal: Yes: WNL, Normal Bowel Sounds Renal/: Yes: WNL, CVA Tenderness - Left Musculoskeletal: Yes: WNL Extremities: Yes: WNL Edema: No Peripheral Pulses WNL: Yes Integumentary: Yes: WNL Neurological: Yes: WNL Psychiatric: Yes: WNL Assessment/Plan 1 Probable DMITRI 2/2 prerenal factors (decreased intake and vomiting) He was sick at least x 2 days. he may have been fluid depleted 2 Underlying CKD? admission s creat 2.2 previous s creat 1.4 when he was in the hosp passing a kidney stone 3 Unclear what the etiology of his renal failure is He has DM and HTN and obesity Plan- continue trial of IVF NS for diuresis and fluid repletion
[2018-06-03] MEDS: HEPARIN NA (PORCINE) 5,000 UNITS/ML 1ML VIAL SQ SCH (06:05)
[2018-06-03] MEDS: INSULIN SLIDING SCALE (NOVOLOG) 1 VIAL SQ SCH ×2 (06:06→12:08)
[2018-06-03 07:47] LABS: BASO % 0.3 % (0-2.0); EOS % 2.2 % (0-4.5); HEMATOCRIT 32.5 % (35.4-49); HEMOGLOBIN 11.8 GM/dL (11.7-16.9); LYMPH % 14.6 % (8-40); MCH 29.8 pg (25.7-33.7); MCHC 36.3 g/dl (32.0-35.9); MEAN PLT VOLUME 7.8 fl (7.5-11.1); MONO % 9.7 % (3.8-10.2); NEUT % 73.2 % (42.8-82.8); PLATELET COUNT 218 K/MM3 (134-434); RBC 3.97 M/mm3 (4.00-5.60); RDW 13.3 % (11.9-15.9)
[2018-06-03 08:19] LABS: ANION GAP 6 MMOL/L (8-16); BLOOD UREA NITROGEN 19 mg/dL (7-18); CALCIUM 8.4 mg/dL (8.5-10.1); CHLORIDE 105 mmol/L (98-107); CO2 26 mmol/L (21-32); CREATININE 2.1 mg/dL (0.55-1.3); GLUCOSE,RANDOM 119 mg/dL (74-106); MAGNESIUM 2.2 mg/dL (1.8-2.4); POTASSIUM 3.9 mmol/L (3.5-5.1); SODIUM 137 mmol/L (136-145)
[2018-06-03] MEDS: TAMSULOSIN HCL 0.4 MG CAP PO SCH (08:39)
[2018-06-03] MEDS ORDERED: DEXTROSE 5%-WATER - 50 ML IVPB ONE (08:57)
[2018-06-03] MEDS ORDERED: cefTRIAXone SODIUM 1 GM VIAL ONE (08:57)
[2018-06-03] MEDS: CEFTRIAXONE 1 GM in DEXTROSE 5%-WATER - 50 ML IVPB SCH (09:17)
[2018-06-03] MEDS: CARVEDILOL 12.5 MG TABLET (FP) PO SCH (09:17)
[2018-06-03] MEDS ORDERED: SODIUM CHLORIDE 1,000 ML IV STA ×2 (09:38→09:39)
[2018-06-03] MEDS ORDERED: SODIUM CHLORIDE 1,000 ML IV SCH (10:40)
--- NOTE | 2018-06-03 11:24 | PN ---
Progress Note (short form) - Note Progress Note: Renal follow up for HEATHER on CKD PT seen and examined at the bedside no longer having flank pain but did not pass stone as of yet no fever, chills, sob, cp, abd pain, N/V/D on IVF making urine Vital Signs Temperature 98.6 F 06/03/18 10:00 Pulse Rate 88 06/03/18 10:00 Respiratory Rate 20 06/03/18 10:00 Blood Pressure 161/85 06/03/18 10:00 O2 Sat by Pulse Oximetry (%) 98 06/02/18 20:29 Intake & Output 05/31/18 06/01/18 06/02/18 06/03/18 23:59 23:59 23:59 23:59 Intake Total 3450 2150 Output Total 200 1450 1999 Balance -200 1999 150 Weight 101.605 kg 101.605 kg CBC, BMP 06/03/18 06:40 06/03/18 06:40 Microbiology 06/01/18 14:09 Urine - Urine Clean Catch Urine Culture - Preliminary Group D Strep Or Entero Coccus Laboratory Tests 06/01/18 06/03/18 14:09 06:40 Calcium 8.4 L Magnesium 2.2 Urine Glucose (UA) 3+ H Urine Blood 1+ H Ur Leukocyte Esterase 1+ H Urine WBC (Auto) 69 Urine RBC (Auto) 14 Current Medications Carvedilol (Coreg -) 12.5 mg PO DAILY [facility] Last Admin: 06/03/18 09:17 Dose: 12.5 mg Heparin Sodium (Porcine) (Heparin -) 5,000 unit SQ TID [facility] Last Admin: 06/03/18 06:05 Dose: Not Given Ceftriaxone Sodium 1 gm/ (Dextrose) 50 mls @ 100 mls/hr IVPB DAILY [facility] Last Admin: 06/03/18 09:17 Dose: 100 mls/hr Sodium Chloride (Normal Saline -) 1,000 mls @ 200 mls/hr IV ASDIR [facility] Insulin Aspart (Novolog Vial Sliding Scale -) 1 vial SQ ACHS [facility]; Protocol Last Admin: 06/03/18 06:06 Dose: Not Given Ketorolac Tromethamine (Toradol) 10 mg PO Q8H PRN PRN Reason: PAIN LEVEL 7 - 10 Stop: 06/06/18 21:59 Morphine Sulfate (Morphine Sulfate) 2 mg IVPUSH Q6H PRN PRN Reason: PAIN LEVEL 6-10 Last Admin: 06/02/18 16:57 Dose: 2 mg Tamsulosin HCl (Flomax -) 0.4 mg PO DAILY@0830 [facility] Last Admin: 06/03/18 08:39 Dose: 0.4 mg 58 year old gentleman with history of HTN, IDDM, Nephrolithiasis presented with flank and found to have renal colic with HEATHER. #Acute kidney Injury #Nephrolithasis/Renal Colic #Hypertension #UTI #DM Pt without flank pain at this time indicating stone is out of ureter despite Cr being above baseline no electrolyte abnormalities noted pt can be discharged and follow up as an outpatient would advise pt not to use NSAIDs as renal function is not normal at this time hold Losartan/HCTZ for now as well can discharge on Amlodipine 10mg Daily for the time being will need to follow up to monitor renal function and BP encouraged oral hydration as tolerated. would benefit from outpatient stone studies Andres Alexis DO
--- NOTE | 2018-06-03 13:24 | PN ---
Progress Note (short form) - Note Progress Note: feels better afebrile creat still elevated mild hydro on sono ok to d/c home with pain meds outpt f/u in 1-2 weeks
[2018-06-03 14:20] LABS: ANION GAP 5 MMOL/L (8-16); BLOOD UREA NITROGEN 19 mg/dL (7-18); CALCIUM 8.2 mg/dL (8.5-10.1); CHLORIDE 105 mmol/L (98-107); CO2 26 mmol/L (21-32); GLUCOSE,RANDOM 219 mg/dL (74-106); POTASSIUM 4.1 mmol/L (3.5-5.1); SODIUM 136 mmol/L (136-145)
[2018-06-03 14:43] VITALS: BP 136/77; PULSE 83; TEMP 98.4
--- NOTE | 2018-06-03 14:53 | PN ---
Teaching Attending Note Name of Resident: Aba Asif ATTENDING PHYSICIAN STATEMENT I saw and evaluated the patient. I reviewed the resident's note and discussed the case with the resident. I agree with the resident's findings and plan as documented. SUBJECTIVE: L flank pain resolved. No further dysuria/hesitancy. No fever/chills /hematuria. No nausea/vomiting. OBJECTIVE: Afebrile, Hemodynamically Stable Last Vital Signs Temp Pulse Resp BP Pulse Ox 98.6 F 88 20 161/85 98 06/03/18 10:00 06/03/18 10:00 06/03/18 10:06/03/18 10:06/03/18 09:00 Heart - S1, S2, RRR Lungs - clear to auscultation Abdomen - L flank tenderness resolved, no CVA tenderness. Soft. Bowel Sounds normal. Extremities- no edema, no calf tenderness. Neuro - AAO x 3. Tone/Power normal all 4 extremities. Laboratory Results - last 24 hr 06/02/18 06/02/18 06/03/18 16:24 21:09 06:02 WBC RBC Hgb Hct MCV MCH MCHC RDW Plt Count MPV Absolute Neuts (auto) Neutrophils % Lymphocytes % Monocytes % Eosinophils % Basophils % Nucleated RBC % Sodium Potassium Chloride Carbon Dioxide Anion Gap BUN Creatinine Creat Clearance w eGFR POC Glucometer 215 116 105 Random Glucose Calcium Magnesium 06/03/18 06/03/18 06/03/18 06:40 06:40 11:37 WBC 6.0 RBC 3.97 L Hgb 11.8 Hct 32.5 L MCV 82.0 MCH 29.8 MCHC 36.3 H RDW 13.3 Plt Count 218 MPV 7.8 Absolute Neuts (auto) 4.4 Neutrophils % 73.2 Lymphocytes % 14.6 D Monocytes % 9.7 Eosinophils % 2.2 D Basophils % 0.3 Nucleated RBC % 0 Sodium 137 Potassium 3.9 Chloride 105 Carbon Dioxide 26 Anion Gap 6 L BUN 19 H Creatinine 2.1 H Creat Clearance w eGFR 32.83 POC Glucometer 221 Random Glucose 119 H Calcium 8.4 L Magnesium 2.2 06/03/18 13:24 WBC RBC Hgb Hct MCV MCH MCHC RDW Plt Count MPV Absolute Neuts (auto) Neutrophils % Lymphocytes % Monocytes % Eosinophils % Basophils % Nucleated RBC % Sodium 136 Potassium 4.1 Chloride 105 Carbon Dioxide 26 Anion Gap 5 L BUN 19 H Creatinine 2.0 H Creat Clearance w eGFR 34.74 POC Glucometer Random Glucose 219 H Calcium 8.2 L Magnesium Current Medications Generic Name Dose Route Start Last Admin Trade Name Freq PRN Reason Stop Dose Admin Carvedilol 12.5 mg 06/02/18 10:00 06/03/18 09:17 Coreg - PO 12.5 mg DAILY [facility] Administration Heparin Sodium (Porcine) 5,000 unit 06/01/18 22:00 06/03/18 06:05 Heparin - SQ Not Given TID [facility] Ceftriaxone Sodium 1 gm/ 50 mls @ 100 mls/hr 06/01/18 17:15 06/03/18 09:17 Dextrose IVPB 100 mls/hr DAILY [facility] Administration Sodium Chloride 1,000 mls @ 200 mls/hr 06/03/18 10:40 06/03/18 11:59 Normal Saline - IV 200 mls/hr ASDIR [facility] Administration Insulin Aspart 1 vial 06/01/18 22:00 06/03/18 12:08 Novolog Vial Sliding Scale - SQ 4 unit ACHS [facility] Administration Protocol Morphine Sulfate 2 mg 06/01/18 19:45 06/02/18 16:57 Morphine Sulfate IVPUSH 2 mg Q6H PRN Administration PAIN LEVEL 6-10 Tamsulosin HCl 0.4 mg 06/02/18 08:30 06/03/18 08:39 Flomax - PO 0.4 mg DAILY@0830 [facility] Administration ASSESSMENT AND PLAN: 58 year old male with history of HLD, HTN, DM 2, CKD 3, R Nephrolithiasis s/p lithotripsy 10 years ago, presented with 1 day history of L sided flank pain radiating around to anterior abdomen, severity 10/10. 1. Sepsis and HEATHER (on CKD 3) secondary to Obstructive Uropathy due to L sided Nephrolithiasis (ureteral, urethral) with Hydronephrosis and resulting UTI CT A/P - 4mm calculus in mid L ureter, partially obstructing with hydronephrosis , perinephric stranding; 2mm non-obstructing calculus lower pole L kidney Tachycardia up to 114. leukocytosis 13.8 on admission He has remained Afebrile, Hemodynamically stable s/p 3 days of IV ceftriaxone UCx pos for Enterococcus and Strep. Will discharge on 4 additional days of Ceftin to complete 7 day Abx course. Repeat Renal imaging - mild L hydro. Eval by Urology and cleared for discharge. Will discharge on Flomax with Urology out-patient follow up. Creat currently 2.0 - for out-patient Nephrology follow up. Advised to avoid NSAIDs, ASA held. 2. HTN - Continue Coreg. Losartan/HCTZ held due to elevated Creatinine. Norvasc substituted for Losartan/HCTZ - further BP medication titration by Nephrology as out-patient. 3. DM 2 - resume Metformin. Medically cleared for discharge with Urology and Nephrology follow up as out- patient.
--- NOTE | 2018-06-03 15:22 | DS ---
Physical Exam: SUBJECTIVE: Patient seen and examined at bedside. no acute events overnight. L flank pain resolved. No further dysuria/hesitancy. No fever/chills/hematuria. No nausea/vomiting. OBJECTIVE: Vital Signs Period Temp Pulse Resp BP Sys/[place] Pulse Ox Last 24 Hr 97.8 F-98.8 F 83-90 20-20 136-161/77-89 98-98 PHYSICAL EXAM GENERAL: Pleasant. Awake, alert, and fully oriented, in no acute distress. HEAD: Normal with no signs of trauma. EYES: Pupils equal, round and reactive to light, extraocular movements intact, sclera anicteric, conjunctiva clear. No lid lag. EARS, NOSE, THROAT: nares patent, oropharynx clear without exudates. Moist mucous membranes. NECK: Normal range of motion, supple without lymphadenopathy LUNGS: Breath sounds equal, clear to auscultation bilaterally. No wheezes, and no crackles. No accessory muscle use. HEART: Regular rate and rhythm, normal S1 and S2 without murmur, rub or gallop. ABDOMEN: Soft,, non distended, normoactive bowel sounds, no guarding, no rebound. L flank tenderness resolved, no CVA tenderness. Soft. LOWER EXTREMITIES: 2+ pt pulses, warm, well-perfused. No calf tenderness. No peripheral edema. NEUROLOGICAL: Cranial nerves II-XII intact. 5/5 motor strength UE, LE. sensation intact PSYCHIATRIC: Cooperative. Good eye contact. SKIN: Warm, dry, normal turgor LABS Laboratory Results - last 24 hr 06/02/18 06/02/18 06/03/18 16:24 21:09 06:02 WBC RBC Hgb Hct MCV MCH MCHC RDW Plt Count MPV Absolute Neuts (auto) Neutrophils % Lymphocytes % Monocytes % Eosinophils % Basophils % Nucleated RBC % Sodium Potassium Chloride Carbon Dioxide Anion Gap BUN Creatinine Creat Clearance w eGFR POC Glucometer 215 116 105 Random Glucose Calcium Magnesium 06/03/18 06/03/18 06/03/18 06:40 06:40 11:37 WBC 6.0 RBC 3.97 L Hgb 11.8 Hct 32.5 L MCV 82.0 MCH 29.8 MCHC 36.3 H RDW 13.3 Plt Count 218 MPV 7.8 Absolute Neuts (auto) 4.4 Neutrophils % 73.2 Lymphocytes % 14.6 D Monocytes % 9.7 Eosinophils % 2.2 D Basophils % 0.3 Nucleated RBC % 0 Sodium 137 Potassium 3.9 Chloride 105 Carbon Dioxide 26 Anion Gap 6 L BUN 19 H Creatinine 2.1 H Creat Clearance w eGFR 32.83 POC Glucometer 221 Random Glucose 119 H Calcium 8.4 L Magnesium 2.2 06/03/18 13:24 WBC RBC Hgb Hct MCV MCH MCHC RDW Plt Count MPV Absolute Neuts (auto) Neutrophils % Lymphocytes % Monocytes % Eosinophils % Basophils % Nucleated RBC % Sodium 136 Potassium 4.1 Chloride 105 Carbon Dioxide 26 Anion Gap 5 L BUN 19 H Creatinine 2.0 H Creat Clearance w eGFR 34.74 POC Glucometer Random Glucose 219 H Calcium 8.2 L Magnesium CTAP: 4mm calc in mid L ureter- partially obstructing calculus. mild hydro. perinephric stranding. non obstructing 2mm calculus lower pole L kidney, urinary tract calculi b/l, enlarged spleen 12.6cm HOSPITAL COURSE: Date of Admission:06/01/18 Date of Discharge: 06/03/18 58 yo M PMH HLD, HTN, DM 2, CKD 3, R Nephrolithiasis s/p lithotripsy 10 years ago, p/w 1 day history of L sided flank pain radiating around to anterior abdomen, severity 10/10. Admitted for Sepsis and HEATHER (on CKD 3) 2/2 Obstructive Uropathy 2/2 L sided Nephrolithiasis (ureteral, urethral) w/ Hydronephrosis and resulting UTI. Tachycardia 114, leukocytosis 13.8, Cr 2.2 (baseline may be 1.4?) on admission. CT A/P - 4mm calculus in mid L ureter, partially obstructing w/ hydronephrosis, perinephric stranding; 2mm non-obstructing calculus lower pole L kidney. UCx pos for Enterococcus and Strep. Urology and nephro consulted. no surgical intervention indicated at this time, per uro. Pt tx w/ IVF, flomax, and IV ceftriaxone x 3d. Currently Afebrile and Hemodynamically stable. Repeat Renal imaging U/S - mild L hydro. re-evaluated by by Urology and cleared for discharge. Cr currently 2.0 despite IVF, will f/u w/ out-patient Nephrology. Advised to avoid NSAIDs and ASA, Losartan/HCTZ held. Norvasc substituted for Losartan/HCTZ (further BP med titration by Nephrology as out-patient). Will discharge on 4 additional days of Ceftin to complete 7 day Abx course and will cont Flomax with Urology out-patient follow up. will resume home Metformin and coreg. Medically cleared for discharge with Urology and Nephrology follow up as out- patient. pt is stable and ready for dc w/ appropriate f/u Minutes to complete discharge: 38 Discharge Summary Reason For Visit: ACUTE KIDNEY INJURY/RENAL COLIC ON LEFT SIDE Current Active Problems HEATHER (acute kidney injury) (Acute) Calculus of ureter (Acute) Calculus, urethra (Acute) Hyperglycemia (Acute) Renal colic on left side (Acute) Condition: Stable - Instructions Diet, Activity, Other Instructions: you came in for back pain and were found to have a kidney stone and a urinary tract infection due to the kidney stone. we gave you pain meds, antibiotics and fluids which helped with your symptoms. You were seen by Urology and Nephrology while in the hospital and there is no surgical intervention indicated at this time. Your kidney function is still elevated however and so you may still have a stone that has yet to pass. Please keep yourself hydrated and drink plenty of water, at least 2-3 liters per day. NEW/CHANGES IN MEDS Please avoid NSAIDs (Advil, ibuprofen, naproxen, aspirin) as this can worsen your kidney function while having a stone. Please stop taking aspirin until your kidney function improves/your stone passes. Please stop taking your blood pressure meds Losartan/HCTZ for now as well as this can worsen your kidney function while having a stone. We will start you on Amlodipine 10mg Daily instead for blood pressure control until your stone has passed and your kidneys recover. Please continue taking Flomax to help you pass your kidney stone Please continue taking antibiotic Ceftin 500mg twice a day for 7 days to treat your urinary tract infection Please resume your other home meds You will need to follow up with lofter Dr. Alexis or with your primary care physician within 1 week to monitor renal function and Blood pressure We recommend you follow up with lofter Dr. Alexis for outpatient stone studies for diagnostic work up of why your getting frequent kidney stones. Please follow up with your primary care physician within 1 week Please follow up with urologist Dr. Arango within 1-2 weeks Please follow up with lofter Dr. Alexis within 1 week If you experiecne any fevers, chills, chest pain, shortness of breath or any worsening of back/abdominal pain, blood in your urine, pain on urinating, inability to urinate, nausea, vomit, please call 911 or go to the ER Referrals: Mateo Arango MD [Staff Physician] - 1 Week Andres Alexis MD [Staff Physician] - 1 Week Disposition: HOME - Home Medications Comprehensive Discharge Medication List: Ambulatory Orders Carvedilol 12.5 mg PO DAILY 06/01/18 Metformin HCl [Glucophage] 500 mg PO BID 06/01/18 Amlodipine Besylate [Norvasc -] 10 mg PO DAILY 15 Days #15 tablet 06/03/18 Aspirin 81 mg PO DAILY #30 tab 06/03/18 Cefuroxime Axetil [Ceftin -] 500 mg PO Q12H 7 Days #14 tablet 06/03/18 Losartan/Hydrochlorothiazide [Losartan-Hctz 100-12.5 mg Tab] 1 mg PO DAILY #30 tab 06/03/18 Tamsulosin HCl [Flomax -] 0.4 mg PO DAILY@0830 30 Days #30 cap.er.24h 06/03/18 This patient is new to me today: Yes Date on this admission: 06/03/18 Emergency Visit: Yes ED Registration Date: 06/01/18 Care time: The patient presented to the Emergency Department on the above date and was hospitalized for further evaluation of their emergent condition. Critical Care patient: No - Discharge Referral Referred to [facility] No
== END 2018-06-03 17:11 | disposition home or self-care (01) | DRG 872 ==
LOC: JER 11:58 → JERBED 15:11 → J7W 19:40
DX: A41.9 Sepsis, unspecified organism (principal); N17.9 Acute kidney failure, unspecified; N39.0 Urinary tract infection, site not specified; N13.2 Hydronephrosis with renal and ureteral calculous obstruction; I12.9 Hypertensive chronic kidney disease with stage 1 through stage 4 chronic kidney disease, or unspecified chronic kidney disease; N18.3 Chronic kidney disease, stage 3 (moderate); E78.5 Hyperlipidemia, unspecified; R00.0 Tachycardia, unspecified; D72.829 Elevated white blood cell count, unspecified; E11.65 Type 2 diabetes mellitus with hyperglycemia; E11.22 Type 2 diabetes mellitus with diabetic chronic kidney disease
CPT/HCPCS: 36415; 71045-TC-FY; 74018-TC-FY; 74176-TC; 76775-TC; 76856-TC; 80048; 80053; 80061; 81003; 81015; 82962; 83605; 83721; 83735; 84100; 85025; 85610; 85730; 86850; 86900; 86901; 87086; 87186; 90732; 93005; 93010; 99283-25; G0009; J1644; J7030

== ENCOUNTER 2020-11-30 23:12 | Observation (INO) | payer BC, OTHER ==
[2020-11-30 23:23] VITALS: BMI 34.3
[2020-11-30] MEDS ORDERED: NITROGLYCERIN SUBLINGUAL 1/150 0.4 MG TAB SL ONE (23:44)
[2020-11-30] MEDS ORDERED: NITROGLYCERIN SUBLINGUAL 1/150 0.4 MG TAB ONE (23:51)
[2020-12-01 00:21] LABS: BASO % 0.6 % (0-2.0); EOS % 0.8 % (0-4.5); HEMATOCRIT 37.1 % (35.4-49); HEMOGLOBIN 13.4 GM/dL (11.7-16.9); LYMPH % 17.5 % (8-40); MCH 29.2 pg (25.7-33.7); MCHC 36.2 g/dl (32.0-35.9); MEAN CELL VOLUME 80.5 fl (80-96); MEAN PLT VOLUME 7.8 fl (7.5-11.1); MONO % 5.9 % (3.8-10.2); NEUT % 75.2 % (42.8-82.8); PLATELET COUNT 200 10^3/uL (134-434); RBC 4.61 M/mm3 (4.00-5.60); RDW 13.9 % (11.9-15.9); WHITE BLOOD COUNT 8.7 K/mm3 (4.0-10.0)
[2020-12-01 00:42] LABS: ALBUMIN 3.9 g/dl (3.4-5.0); BLOOD UREA NITROGEN 13.9 mg/dL (7-18); CALCIUM 9.1 mg/dL (8.5-10.1)
[2020-12-01 00:46] LABS: CREATININE 1.1 mg/dL (0.55-1.3)
[2020-12-01 00:47] LABS: BILIRUBIN,TOTAL 0.8 mg/dL (0.2-1); TOT PROT 6.9 g/dl (6.4-8.2)
[2020-12-01] MEDS ORDERED: ASPIRIN 81 MG CHEWABLE TABLETS PO ONE (01:23)
[2020-12-01] MEDS ORDERED: ASPIRIN 81 MG CHEWABLE TABLETS ONE ×2 (01:33→09:52)
[2020-12-01] MEDS ORDERED: METOPROLOL TARTRATE 25 MG TABLET (FP) PO ONE (04:27)
[2020-12-01] MEDS ORDERED: POTASSIUM CHLORIDE TABS 20 MEQ TABLET.ER (FP) PO ONE (04:42)
[2020-12-01] MEDS ORDERED: KCL 10 MEQ IVPB 10 MEQ/100 ML INFUS.BAG IVPB SCH (04:45)
[2020-12-01] MEDS ORDERED: metoPROLOL SUCCINATE 25 MG TAB.SR.24H (FP) PO ONE (04:45)
[2020-12-01 06:01] LABS: EPI CELLS 8 /uL (0-25.1); HYALINE CASTS 3 /uL (0-3.1); URINE APPEARANCE CLEAR; URINE BACTERIA 79 /uL (0-1359); URINE BILIRUBIN NEGATIVE (NEGATIVE); URINE COLOR YELLOW; URINE GLUCOSE (UA) NEGATIVE (NEGATIVE); URINE KETONE TRACE (NEGATIVE); URINE LEUK ESTERASE 2+ (NEGATIVE); URINE NITRITE NEGATIVE (NEGATIVE); URINE PROTEIN NEGATIVE (NEGATIVE); URINE RBC 157 /uL (0-23.9); URINE UROBILINOGEN 0.2 mg/dL (0.2-1.0); URINE WBC 184 /uL (0-25.8)
[2020-12-01 06:05] LABS: METHADONE, UR NEGATIVE (NEGATIVE); OPIATES, URI NEGATIVE (NEGATIVE)
[2020-12-01 06:07] LABS: PHENCYCLIDINE,URINE NEGATIVE (NEGATIVE)
[2020-12-01] MEDS ORDERED: CEFTRIAXONE 1,000 MG in DEXTROSE 5%-WATER - 50 ML IVPB ONE (06:09)
[2020-12-01 06:12] LABS: COCAINE, UR NEGATIVE (NEGATIVE); URINE AMPHETAMINES NEGATIVE (NEGATIVE); URINE BARBITURATES NEGATIVE (NEGATIVE); URINE BENZODIAZEPINES NEGATIVE (NEGATIVE)
[2020-12-01] MEDS ORDERED: CEFTRIAXONE 1 GM/50 ML BAG ONE (08:10)
[2020-12-01 08:22] LABS: ALBUMIN 3.8 g/dl (3.4-5.0); BLOOD UREA NITROGEN 11.9 mg/dL (7-18); CALCIUM 8.8 mg/dL (8.5-10.1); MAGNESIUM 1.9 mg/dL (1.8-2.4)
[2020-12-01 08:23] LABS: BASO % 0.3 % (0-2.0); HEMATOCRIT 38.7 % (35.4-49); HEMOGLOBIN 13.9 GM/dL (11.7-16.9); LYMPH % 21.7 % (8-40); MCH 29.2 pg (25.7-33.7); MCHC 35.8 g/dl (32.0-35.9); MEAN CELL VOLUME 81.5 fl (80-96); MEAN PLT VOLUME 8.9 fl (7.5-11.1); MONO % 7.4 % (3.8-10.2); NEUT % 69.6 % (42.8-82.8); PLATELET COUNT 198 10^3/uL (134-434); RBC 4.75 M/mm3 (4.00-5.60); RDW 14.1 % (11.9-15.9); WHITE BLOOD COUNT 8.5 K/mm3 (4.0-10.0)
[2020-12-01 08:26] LABS: PHOSPHOROUS 2.5 mg/dL (2.5-4.9)
[2020-12-01 08:27] LABS: BILIRUBIN,TOTAL 0.8 mg/dL (0.2-1)
[2020-12-01] MEDS: INSULIN SLIDING SCALE (NOVOLOG) 1 VIAL SQ SCH ×2 (09:33→18:41)
[2020-12-01] MEDS ORDERED: HYDROCHLOROTHIAZIDE 25 MG TABLET (FP) ONE (09:52)
[2020-12-01] MEDS: LOSARTAN POTASSIUM 50 MG TABLET PO SCH (09:53)
[2020-12-01] MEDS: HYDROCHLOROTHIAZIDE 25 MG TABLET (FP) PO SCH (09:53)
[2020-12-01] MEDS ORDERED: ENOXAPARIN NA (PORCINE) 40 MG/0.4 ML DISP.SYRIN SQ ONE (09:53)
[2020-12-01] MEDS: ASPIRIN 81 MG CHEWABLE TABLETS PO SCH (09:53)
[2020-12-01] MEDS ORDERED: LOSARTAN POTASSIUM 50 MG TABLET ONE (09:53)
[2020-12-01] MEDS: amLODIPine BESYLATE 10 MG TABLET (FP) PO SCH (09:54)
[2020-12-01] MEDS: ENOXAPARIN NA (PORCINE) 40 MG/0.4 ML DISP.SYRIN SQ SCH (09:54)
[2020-12-01] MEDS ORDERED: amLODIPine BESYLATE 5 MG TABLET (FP) ONE (09:55)
[2020-12-01] MEDS ORDERED: metoPROLOL SUCCINATE 25 MG TAB.SR.24H (FP) PO SCH ×2 (10:00→22:00)
[2020-12-01] MEDS ORDERED: HYDROCHLOROTHIAZIDE 12.5 MG CAPSULE (FP) PO SCH (10:00)
[2020-12-01] MEDS ORDERED: CARVEDILOL 3.125 MG TABLET (FP) PO SCH (10:00)
[2020-12-01] MEDS ORDERED: ATORVASTATIN CA 40 MG TABLET (FP) PO SCH (22:00)
[2020-12-01] MEDS ORDERED: LOSARTAN POTASSIUM 50 MG TABLET PO SCH (22:00)
[2020-12-02] MEDS ORDERED: ATORVASTATIN CA 40 MG TABLET (FP) ONE (05:43)
[2020-12-02] MEDS ORDERED: CARVEDILOL 12.5 MG TABLET (FP) ONE ×2 (05:43→08:55)
[2020-12-02] MEDS: INSULIN SLIDING SCALE (NOVOLOG) 1 VIAL SQ SCH ×4 (05:49→16:53)
[2020-12-02] MEDS: CARVEDILOL 25 MG TABLET (FP) PO SCH ×2 (05:49→09:04)
[2020-12-02] MEDS ORDERED: ASPIRIN 81 MG CHEWABLE TABLETS ONE (08:55)
[2020-12-02] MEDS ORDERED: amLODIPine BESYLATE 5 MG TABLET (FP) ONE (08:55)
[2020-12-02] MEDS ORDERED: ENOXAPARIN NA (PORCINE) 40 MG/0.4 ML DISP.SYRIN SQ ONE (08:56)
[2020-12-02] MEDS ORDERED: LOSARTAN POTASSIUM 50 MG TABLET ONE (08:56)
[2020-12-02] MEDS ORDERED: HYDROCHLOROTHIAZIDE 25 MG TABLET (FP) ONE (08:57)
[2020-12-02] MEDS: HYDROCHLOROTHIAZIDE 25 MG TABLET (FP) PO SCH (09:04)
[2020-12-02] MEDS: amLODIPine BESYLATE 10 MG TABLET (FP) PO SCH (09:04)
[2020-12-02] MEDS: LOSARTAN POTASSIUM 50 MG TABLET PO SCH (09:04)
[2020-12-02] MEDS: ENOXAPARIN NA (PORCINE) 40 MG/0.4 ML DISP.SYRIN SQ SCH (09:04)
[2020-12-02] MEDS: ASPIRIN 81 MG CHEWABLE TABLETS PO SCH (09:04)
[2020-12-02 09:40] LABS: HEMATOCRIT 41.2 % (35.4-49); HEMOGLOBIN 14.7 GM/dL (11.7-16.9); MCH 29.3 pg (25.7-33.7); MCHC 35.7 g/dl (32.0-35.9); MEAN PLT VOLUME 8.6 fl (7.5-11.1); PLATELET COUNT 200 10^3/uL (134-434); RBC 5.02 M/mm3 (4.00-5.60); RDW 13.7 % (11.9-15.9); WHITE BLOOD COUNT 8.8 K/mm3 (4.0-10.0)
[2020-12-02 10:07] LABS: CALCIUM 9.3 mg/dL (8.5-10.1); MAGNESIUM 2.1 mg/dL (1.8-2.4)
[2020-12-02 10:08] LABS: BLOOD UREA NITROGEN 12.6 mg/dL (7-18)
[2020-12-02 10:10] LABS: CREATININE 1.3 mg/dL (0.55-1.3); PHOSPHOROUS 3.7 mg/dL (2.5-4.9)
[2020-12-02 11:37] VITALS: TEMP 98.1
[2020-12-02 17:33] VITALS: BP 142/75; PULSE 82
== END 2020-12-02 17:32 | disposition home or self-care (01) ==
LOC: JER 23:12 → INTOOBSV 12-01 02:40 → JERBED 12-01 02:40 → UNDOADMOB 12-01 02:40 → JERBED 12-02 14:19
PROVIDERS: ADMIT Internal Medicine; ATTEND Internal Medicine
PROC: 3E023GC Introduction of Other Therapeutic Substance into Muscle, Percutaneous Approach (ICD-10-PCS; principal; 2020-12-02)
PROC: 3E03329 Introduction of Other Anti-infective into Peripheral Vein, Percutaneous Approach (ICD-10-PCS; 2020-12-02)
DX: I16.0 Hypertensive urgency (principal); E11.9 Type 2 diabetes mellitus without complications; E78.00 Pure hypercholesterolemia, unspecified; E66.9 Obesity, unspecified; Z68.34 Body mass index [BMI] 34.0-34.9, adult; N40.0 Benign prostatic hyperplasia without lower urinary tract symptoms; Z29.9 Encounter for prophylactic measures, unspecified; R79.89 Other specified abnormal findings of blood chemistry; E87.6 Hypokalemia
CPT/HCPCS: 36415; 71046-TC-FY; 76705-TC; 78452-TC; 80048; 80053; 80061; 80307; 81003; 82088; 82550; 82553; 82962; 83735; 84100; 84443; 84484; 85025; 85027; 86769; 93005; 93010; 93017; 93306-TC; 93308; 99285-25; A9502; C9803; G0378; U0003; U0005

== ENCOUNTER 2022-11-25 18:05 | Inpatient (IN) | payer BC, OTHER ==
[2022-11-25 18:39] VITALS: BMI 33.4
[2022-11-25] MEDS ORDERED: ASPIRIN 81 MG CHEWABLE TABLETS PO ONE (19:36)
[2022-11-25] MEDS ORDERED: ASPIRIN 81 MG CHEWABLE TABLETS ONE (20:18)
[2022-11-25 20:26] LABS: POTASSIUM 5.1 mmol/L (3.5-5.1)
[2022-11-25 20:28] LABS: CALCIUM 9.5 mg/dL (8.5-10.1)
[2022-11-25 20:29] LABS: ALBUMIN 4.3 g/dl (3.4-5.0); BLOOD UREA NITROGEN 13.6 mg/dL (7-18)
[2022-11-25 20:31] LABS: CREATININE 1.5 mg/dL (0.55-1.3)
[2022-11-25 20:33] LABS: BILIRUBIN,TOTAL 0.8 mg/dL (0.2-1); TOT PROT 8.5 g/dl (6.4-8.2)
[2022-11-25 20:44] LABS: BASO % 0.5 % (0-2.0); EOS % 1.1 % (0-4.5); HEMATOCRIT 41.6 % (35.4-49); HEMOGLOBIN 14.5 GM/dL (11.7-16.9); LYMPH % 13.7 % (8-40); MCH 28.9 pg (25.7-33.7); MCHC 34.8 g/dl (32.0-35.9); MEAN CELL VOLUME 83.1 fl (80-96); MEAN PLT VOLUME 9.5 fl (7.5-11.1); MONO % 5.5 % (3.8-10.2); NEUT % 79.2 % (42.8-82.8); PLATELET COUNT 229 10^3/uL (134-434); RDW 14.2 % (11.9-15.9); WHITE BLOOD COUNT 8.9 K/mm3 (4.0-10.0)
[2022-11-25] MEDS ORDERED: CARVEDILOL 25 MG TABLET (FP) PO ONE (20:53)
[2022-11-25] MEDS ORDERED: LOSARTAN 50MG/HCTZ 12.5MG 1 TAB PO ONE (20:54)
[2022-11-25] MEDS ORDERED: ENOXAPARIN NA (PORCINE) 100 MG/1 ML DISP.SYRIN SQ ONE ×2 (21:16→21:58)
[2022-11-25 22:20] LABS: INR 1.13 (0.83-1.09); PROTHROMBIN TIME (PATIENT) 13.1 SEC (9.7-13.0)
[2022-11-25 22:23] LABS: ACTIVATED PTT 34.3 SECONDS (25.2-36.5)
[2022-11-25 22:38] LABS: POTASSIUM 3.6 mmol/L (3.5-5.1)
[2022-11-25 22:40] LABS: BLOOD UREA NITROGEN 13.1 mg/dL (7-18); CALCIUM 9.2 mg/dL (8.5-10.1)
[2022-11-25 22:44] LABS: CREATININE 1.4 mg/dL (0.55-1.3)
[2022-11-26 00:44] LABS: EPI CELLS 1 /uL (0-25.1); HYALINE CASTS 1 /uL (0-3.1); PH,URINE 8.5 (5.0-8.0); URINE APPEARANCE CLEAR; URINE BACTERIA 62 /uL (0-1359); URINE BILIRUBIN NEGATIVE (NEGATIVE); URINE COLOR YELLOW; URINE GLUCOSE (UA) NEGATIVE (NEGATIVE); URINE KETONE NEGATIVE (NEGATIVE); URINE LEUK ESTERASE 3+ (NEGATIVE); URINE NITRITE NEGATIVE (NEGATIVE); URINE PROTEIN NEGATIVE (NEGATIVE); URINE RBC 115 /uL (0-23.9); URINE UROBILINOGEN 0.2 mg/dL (0.2-1.0); URINE WBC 646 /uL (0-25.8)
[2022-11-26 01:41] VITALS: RESP 18
[2022-11-26] MEDS ORDERED: MAG HYDROX/AL HYDROX/SIMETH 30 ML UNIT-DOSE CUP PO ONE (01:45)
[2022-11-26] MEDS ORDERED: CEFTRIAXONE 1 GM in DEXTROSE 5%-WATER - 100 ML IVPB ONE (03:47)
[2022-11-26] MEDS ORDERED: CEFTRIAXONE 1 GM/50 ML BAG ONE (04:33)
[2022-11-26 05:42] LABS: HEMOGLOBIN 14.7 GM/dL (11.7-16.9); MCH 28.9 pg (25.7-33.7); MCHC 34.9 g/dl (32.0-35.9); MEAN CELL VOLUME 82.9 fl (80-96); MEAN PLT VOLUME 9.2 fl (7.5-11.1); PLATELET COUNT 255 10^3/uL (134-434); RBC 5.07 M/mm3 (4.00-5.60); RDW 14.1 % (11.9-15.9); WHITE BLOOD COUNT 8.5 K/mm3 (4.0-10.0)
[2022-11-26 05:57] LABS: POTASSIUM 3.5 mmol/L (3.5-5.1)
[2022-11-26 06:01] LABS: ALBUMIN 4.3 g/dl (3.4-5.0); CALCIUM 9.7 mg/dL (8.5-10.1)
[2022-11-26 06:04] LABS: CREATININE 1.4 mg/dL (0.55-1.3)
[2022-11-26 06:06] LABS: BILIRUBIN,TOTAL 0.6 mg/dL (0.2-1); TOT PROT 8.1 g/dl (6.4-8.2)
[2022-11-26] MEDS: INSULIN SLIDING SCALE (NOVOLOG) 1 VIAL SQ SCH ×2 (07:12→12:56)
[2022-11-26] MEDS ORDERED: amLODIPine BESYLATE 10 MG TABLET (FP) PO SCH (10:00)
[2022-11-26] MEDS ORDERED: CARVEDILOL 25 MG TABLET (FP) PO SCH (10:00)
[2022-11-26] MEDS ORDERED: PANTOPRAZOLE 40 MG TABLET PO SCH (10:00)
[2022-11-26] MEDS ORDERED: ENOXAPARIN NA (PORCINE) 100 MG/1 ML DISP.SYRIN SQ SCH (10:00)
[2022-11-26] MEDS ORDERED: LOSARTAN POTASSIUM 50 MG TABLET PO SCH (10:00)
[2022-11-26] MEDS ORDERED: ASPIRIN COATED 81 MG TABLET.EC PO SCH (10:00)
[2022-11-26] MEDS ORDERED: HYDROCHLOROTHIAZIDE 25 MG TABLET (FP) PO SCH (10:00)
[2022-11-26 10:35] VITALS: BP 170/86; PULSE 75; TEMP 97.2
[2022-11-26] MEDS ORDERED: ATORVASTATIN CA 40 MG TABLET (FP) PO SCH (22:00)
[2022-11-26] MEDS ORDERED: ATORVASTATIN CA 80 MG TABLET (FP) PO SCH (22:00)
== END 2022-11-26 13:30 | disposition left against medical advice (07) | DRG 313 ==
LOC: JER 18:05 → OBSVTOIN 22:18 → JERBED 22:18 → INTOOBSV 22:18 → UNDOADMOB 22:18 → JERBED 23:26 → OBSVTOIN 23:26
PROVIDERS: ADMIT Internal Medicine; ATTEND Internal Medicine
DX: R07.89 Other chest pain (principal); E78.5 Hyperlipidemia, unspecified; I12.9 Hypertensive chronic kidney disease with stage 1 through stage 4 chronic kidney disease, or unspecified chronic kidney disease; E11.22 Type 2 diabetes mellitus with diabetic chronic kidney disease; N18.2 Chronic kidney disease, stage 2 (mild)
CPT/HCPCS: 36415; 71046-TC-FY; 80048; 80053; 80061; 81003; 82550; 82553; 82962; 83036; 83690; 84443; 84484; 85025; 85027; 85610; 85730; 87086; 93005; 93010; 99285-25